=== PATIENT | female | born 1995 | race Caucasian/White ===

== ENCOUNTER 2018-08-17 00:37 | Emergency (ER) | payer OTHER | END 2018-08-17 01:58 | disposition home or self-care (01) | LOC: FER 00:37 ==

== ENCOUNTER 2018-08-17 22:27 | Emergency (ER) | payer OTHER | END 2018-08-17 23:24 | disposition home or self-care (01) | LOC: FER 22:27 ==

== ENCOUNTER 2021-12-14 04:39 | Day surgery (SDC) | payer OTHER ==
[2021-12-13 13:37] VITALS: BMI 49.3
[2021-12-14 12:55] VITALS: TEMP 97.3
[2021-12-14 14:49] VITALS: BP 126/64; PULSE 79; RESP 16
== END 2021-12-14 13:45 | disposition home or self-care (01) ==
LOC: JASU-ENDO 04:39
PROVIDERS: ATTEND Internal Medicine Gastroenterology
PROC: 0DB68ZX Excision of Stomach, Via Natural or Artificial Opening Endoscopic, Diagnostic (ICD-10-PCS; principal; 2021-12-14 14:00)
DX: Z01.818 Encounter for other preprocedural examination (principal); E66.01 Morbid (severe) obesity due to excess calories
CPT/HCPCS: 81025; 88305-TC; 88342-TC